=== PATIENT | female | born 2000 | race Caucasian/White ===

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

== ENCOUNTER 2019-03-05 11:57 | Emergency (ER) | payer BC, OTHER ==
--- OUTSIDE RECORDS SUMMARY | 2019-03-05 12:30 | XMS REPORT ---
:2000 Author Organization [facility] Address [address] [place] [address] Dr. Varghese [address] [place] [id number] Care Team Providers Name Role Phone Unavailable Unavailable Unavailable Problems This patient has no known problems. Allergies, Adverse Reactions, Alerts This patient has no known allergies or adverse reactions. Medications This patient has no known medications.
[2019-03-05] MEDS ORDERED: LEVALBUTEROL 1.25 MG/3 ML NEB ONE (12:39)
[2019-03-05 12:58] LABS: Urine Blood NEGATIVE (NEG); Urine Glucose NEGATIVE (NEG); Urine Protein NEGATIVE (NEG); Urine Specific Gravity 1.025 (1.005-1.030)
[2019-03-05 13:36] LABS: Absolute Lymphocytes (CBC) 1.9 K/uL (0.7-4.9); Absolute Monocytes 0.4 K/uL (0.1-1.3); Absolute Neutrophil 3.5 K/uL (1.8-8.0); Basophils % 0.3 % (0-1.3); Eosinophils % 3.7 % (0-4.4); Hematocrit 43.9 % (36.0-45.0); Lymphocytes % 31.3 % (15.3-44.8); MPV 9.1 fL (7.6-11.3); Monocytes % 7.3 % (3.3-12.3); RBC Red Blood Cell Count 5.28 M/uL (3.86-4.86)
--- NOTE | 2019-03-05 13:37 | RAD REPORT ---
EXAM DESCRIPTION: Yuan Single View03/05/2019 1:31 pm CLINICAL HISTORY: Chest pain COMPARISON: none FINDINGS: The lungs appear clear of acute infiltrate. The heart is normal size IMPRESSION: No acute abnormalities displayed
[2019-03-05 13:53] LABS: ALT/SGPT 58 U/L (12-78); AST/SGOT 37 U/L (15-37); Albumin 3.4 g/dL (3.4-5.0); Alkaline Phosphatase 82 U/L (45-117); BUN Blood Urea Nitrogen 9 mg/dL (7-18); Bicarbonate 24 mmol/L (21-32); Bilirubin Direct < 0.1 mg/dL (0-0.2); Bilirubin Total 0.3 mg/dL (0.2-1.0); Glucose Level 115 mg/dL (74-106); Magnesium 1.9 mg/dL (1.8-2.4); NT PRO-BNP 61 pg/mL (<125); Potassium 3.6 mmol/L (3.5-5.1); Protein, Total 7.3 g/dL (6.4-8.2); Sodium Level 145 mmol/L (136-145); Troponin (Emerg Dept Use Only) < 0.02 ng/mL (0.0-0.045)
[2019-03-05] MEDS ORDERED: DIPHENHYDRAMINE 50 MG/ML VIAL ONE (13:53)
[2019-03-05] MEDS ORDERED: METOCLOPRAMIDE 10 MG/2mL INJ ONE (13:53)
[2019-03-05] MEDS ORDERED: KETOROLAC 30 MG/ML INJ ONE (13:53)
[2019-03-05] MEDS ORDERED: DEXAMETHASONE 10 MG/ML VIAL ONE (13:53)
[2019-03-05] MEDS ORDERED: NA CHLORIDE 0.9% 1,000 ML ONE (13:53)
--- NOTE | 2019-03-05 14:14 | RAD REPORT ---
EXAM DESCRIPTION: CT - Chest For Pe Angio - 03/05/2019 2:04 pm CLINICAL HISTORY: Chest pain COMPARISON: None. TECHNIQUE: Dynamically enhanced axial 3 mm thick images of the chest were obtained during administra tion of <100> mL Isovue 370 IV contrast. Coronal and oblique reconstruction images were generated and reviewed. Exam utilizes a protocol for optimal evaluation of pulmonary arterial tree. Maximum intensity projections 3D imaging was utilized All CT scans are performed using dose optimization technique as appropriate and may include automated exposure control or mA/KV adjustment according to patient size. FINDINGS: The opacification of the pulmonary arteries is suboptimal. A gross central pulmonary embol us is not seen. A thoracic aortic aneurysm is not noted. A pleural effusion is not seen. A pericardial effusion is not seen. A lung consolidation is not present. IMPRESSION: No gross evidence of a pulmonary embolus
--- NOTE | 2019-03-05 15:15 | ER ---
Nurse's Notes [facility] Name: Yvonne Mojica Age: 18 yrs Sex: Female : 2000 Arrival Date: 03/05/2019 Time: 11:59 Bed 20 Private MD: Diagnosis: Cough;Wheezing Presentation: 03/05 12:03 Presenting complaint: Patient states: Sore throat, cough, congestion for 4 days. Denies aj fever. Patient would also like a test. Transition of care: patient was not received from another setting of care. Onset of symptoms was March 01, 2019. Risk Assessment: Do you want to hurt yourself or someone else? Patient reports no desire to harm self or others. Initial Sepsis Screen: Does the patient meet any 2 criteria? No. Patient's initial sepsis screen is negative. Does the patient have a suspected source of infection? No. Patient's initial sepsis screen is negative. Care prior to arrival: None. 12:03 Method Of Arrival: Ambulatory 12:03 Acuity: KEIRY 4 Triage Assessment: 12:04 General: Appears in no apparent distress. comfortable, Behavior is calm, cooperative, aj appropriate for age. Pain: Denies pain. EENT: Reports nasal congestion nasal discharge pain when swallowing. Respiratory: Reports cough that is. Derm: Skin is intact, is healthy with good turgor, Skin is pink, warm \T\ dry. normal. HUB BANDER: 12:04 [facility] 02/01/2019 aj Historical: - Allergies: 12:04 No Known Allergies; aj - Home Meds: 12:04 None [Active]; aj - PMHx: 12:04 None; aj - PSHx: 12:04 None; aj - Immunization history:: Adult Immunizations up to date. - Social history:: Smoking status: Patient uses tobacco products, denies chronic smoking, but will smoke occasionally. - Ebola Screening: : Patient negative for fever greater than or equal to 101.5 degrees Fahrenheit, and additional compatible Ebola Virus Disease symptoms Patient denies exposure to infectious person Patient denies travel to an Ebola-affected area in the 21 days before illness onset No symptoms or risks identified at this time. Screenin:05 Abuse screen: Denies threats or abuse. Denies injuries from another. Nutritional bp screening: No deficits noted. Tuberculosis screening: No symptoms or risk factors identified. Fall Risk None identified. Assessment: 12:00 General: SEE TRIAGE NOTE. Respiratory: Reports cough that is Airway is patent bp Respiratory effort is even, unlabored, Respiratory pattern is regular, symmetrical, Breath sounds are clear bilaterally. 14:00 Reassessment: ALL CURRENT ORDERS COMPLETED, RESULTS PENDING. bp 15:39 Reassessment: PT D/C HOME AMBULATORY, DX WITH COUGH AND WHEEZING. bp Vital Signs: 12:04 BP 131 / 76; Pulse 118; Resp 19; Temp 98.9; Pulse Ox 97% on R/A; Weight 122.47 kg; aj Height 5 ft. 2 in. (157.48 cm); 13:06 BP 137 / 72; Pulse 130; Resp 20; Temp 98.9; Pulse Ox 97% on R/A; mh5 13:48 BP 146 / 89; Pulse 118; Resp 20; Temp 100.0; Pulse Ox 100% ; bp 14:46 BP 124 / 58; Pulse 100; Resp 20; Temp 98.9(O); Pulse Ox 93% on R/A; mh5 12:04 Body Mass Index 49.38 (122.47 kg, 157.48 cm) aj ED Course: 11:59 Patient arrived in ED. ds1 12:04 Triage completed. aj 12:04 Arm band placed on left wrist. Patient placed in an exam room. aj 12:05 Patient has correct armband on for positive identification. Bed in low position. Call bp light in reach. Side rails up X2. Adult w/ patient. 12:06 Jason Salas PA is PHCP. cp 12:06 Jason Winn MD is Attending Physician. cp 12:07 Mega Matthews, VALDO is Primary Nurse. bp 13:29 Initial lab(s) drawn, by ny, sent to lab. Inserted saline lock: 20 gauge in right mh5 antecubital area, using aseptic technique. Blood collected. 13:30 Warm blanket given. Pulse ox on. NIBP on. mh5 13:31 X-ray completed. Portable x-ray completed in exam room. Patient tolerated procedure sw well. 13:33 XRAY Chest (1 view) In Process Unspecified. EDMS 14:01 CT completed. Patient tolerated procedure well. Patient moved to CT via wheelchair. sj Patient moved back from CT. 14:05 CT Chest For PE Angio In Process Unspecified. EDMS 15:41 No provider procedures requiring assistance completed. IV discontinued, intact, bp bleeding controlled, No redness/swelling at site. Administered Medications: 12:30 Drug: Xopenex (3) 1.25 mg Route: Inhalation; bp 13:30 Drug: TORadol 30 mg Route: IVP; Site: right antecubital; bp 15:49 Follow up: Response: Pain is decreased bp 13:30 Drug: Decadron - Dexamethasone 10 mg Route: IVP; Site: right antecubital; bp 15:48 Follow up: Response: No adverse reaction bp 13:30 Drug: NS 0.9% 1000 ml Route: IV; Rate: 1 bolus; Site: right antecubital; bp 15:43 Follow up: IV Status: Completed infusion; IV Intake: 1000ml bp 15:49 Follow up: IV Status: Completed infusion; IV Intake: 1000ml bp 13:30 Drug: Benadryl 25 mg Route: IVP; Site: right antecubital; bp 15:48 Follow up: Response: No adverse reaction bp 13:30 Drug: Reglan 10 mg Route: IVP; Site: right antecubital; bp 15:48 Follow up: Response: No adverse reaction bp Intake: 15:43 IV: 1000ml; Total: 1000ml. bp 15:49 IV: 1000ml; Total: 2000ml. bp Outcome: 15:15 Discharge ordered by MD. cp 15:41 Discharged to home ambulatory. bp 15:41 Condition: stable 15:41 Discharge instructions given to patient, Instructed on discharge instructions, follow up and referral plans. medication usage, Demonstrated understanding of instructions, follow-up care, medications, Prescriptions given X 3. 15:50 Patient left the ED. bp Signatures: Dispatcher [employer] EDMS Arcelia Coleman RN RN aj Jones, Leah Aragon, Joya ds1 Barb Menchaca Corey, PA PA cp Martinez, Maria [facility] Mega Matthews RN RN bp Corrections: (The following items were deleted from the chart) 12:06 12:03 Presenting complaint: Patient states: Sore throat, cough, congestion for 4 days. aj Denies fever aj
--- NOTE | 2019-03-05 15:16 | EDPHYS ---
Physician Documentation [facility] Name: Yvonne Mojica Age: 18 yrs Sex: Female : 2000 Arrival Date: 03/05/2019 Time: 11:59 Bed 20 Private MD: ED Physician Jason Winn HPI: 03/05 12:30 This 18 yrs old Female presents to ER via Ambulatory with complaints of Sore cp Throat, Cough. 12:30 The patient presents with sore throat. cp 12:30 Onset: The symptoms/episode began/occurred 4 day(s) ago. Severity of symptoms: in the emergency department the symptoms are unchanged, despite home interventions. Associated signs and symptoms: Pertinent positives: chest pain, cough, Pertinent negatives diarrhea, dysphagia, earache, fever, vomiting. The patient has not experienced similar symptoms in the past. 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 - Social history:: Smoking status: Patient uses tobacco products, denies chronic smoking, but will smoke occasionally. - Ebola Screening: : Patient negative for fever greater than or equal to 101.5 degrees Fahrenheit, and additional compatible Ebola Virus Disease symptoms Patient denies exposure to infectious person Patient denies travel to an Ebola-affected area in the 21 days before illness onset No symptoms or risks identified at this time. ROS: 12:35 Constitutional: Negative for body aches, chills, fever, poor PO intake. cp 12:35 Eyes: Negative for injury, pain, redness, and discharge. cp 12:35 ENT: Positive for sore throat, Negative for drainage from ear(s), ear pain, difficulty swallowing, difficulty handling secretions. 12:35 Cardiovascular: Positive for chest pain, Negative for edema, palpitations. 12:35 Respiratory: Positive for cough, shortness of breath, Negative for wheezing. 12:35 Abdomen/GI: Negative for abdominal pain, nausea, vomiting, and diarrhea, black/tarry stool, rectal bleeding. 12:35 Back: Negative for pain at rest, pain with movement, radiated pain. 12:35 Skin: Negative for cellulitis, rash. 12:35 Neuro: Positive for dizziness, headache, Negative for altered mental status, syncope, weakness. 12:35 All other systems are negative. Exam: 12:42 Constitutional: The patient appears in no acute distress, alert, awake, cp non-diaphoretic, non-toxic, well developed, well nourished, uncomfortable. 12:42 Head/Face: Normocephalic, atraumatic. cp 12:42 Eyes: Periorbital structures: appear normal, Conjunctiva: normal, no exudate, no injection, Sclera: no appreciated abnormality, Lids and lashes: appear normal, bilaterally. 12:42 ENT: External ear(s): are unremarkable, Ear canal(s): are normal, clear, TM's: bulging, is not appreciated, bilaterally, dullness, bilaterally, erythema, is not appreciated, bilaterally, Nose: is normal, Mouth: Lips: moist, Oral mucosa: moist, Posterior pharynx: Airway: no evidence of obstruction, patent, Tonsils: no enlargement, no exudate, Uvula: midline, swelling, is not appreciated, erythema, that is mild. 12:42 Neck: ROM/movement: is normal, is supple, without pain, no range of motions limitations, no meningismus, no nuchal rigidity. 12:42 Chest/axilla: Inspection: normal, Palpation: is normal, no crepitus, no tenderness. 12:42 Cardiovascular: Rate: tachycardic, Rhythm: regular, Heart sounds: murmur, not appreciated, Edema: is not appreciated, JVD: is not appreciated. 12:42 Respiratory: the patient does not display signs of respiratory distress, Respirations: normal, no use of accessory muscles, no retractions, no splinting, no tachypnea, labored breathing, is not present, Breath sounds: bronchial sounds, that are mild, are heard diffusely, decreased breath sounds, are not appreciated, stridor, is not appreciated, wheezing: that is mild, is heard diffusely. 12:42 Abdomen/GI: Inspection: abdomen appears normal, Palpation: soft, in all quadrants. 12:42 Back: ROM is normal. 12:42 Skin: cellulitis, is not appreciated, no rash present. 12:42 Neuro: Orientation: to person, place \T\ time. Mentation: is normal, Cerebellar function: is grossly normal, Motor: is normal, Sensation: is normal. 13:48 ECG was reviewed by the Attending Physician. cp Vital Signs: 12:04 BP 131 / 76; Pulse 118; Resp 19; Temp 98.9; Pulse Ox 97% on R/A; Weight 122.47 kg; aj Height 5 ft. 2 in. (157.48 cm); 13:06 BP 137 / 72; Pulse 130; Resp 20; Temp 98.9; Pulse Ox 97% on R/A; mh5 13:48 BP 146 / 89; Pulse 118; Resp 20; Temp 100.0; Pulse Ox 100% ; bp 14:46 BP 124 / 58; Pulse 100; Resp 20; Temp 98.9(O); Pulse Ox 93% on R/A; mh5 12:04 Body Mass Index 49.38 (122.47 kg, 157.48 cm) aj MDM: 12:06 Patient medically screened. cp 15:15 Data reviewed: vital signs, nurses notes, lab test result(s), EKG, radiologic studies, cp CT scan, plain films. 15:15 Differential diagnosis: retropharyngeal abcess tonsillitis, tracheobronchitis, cp pneumonia, PE. Test interpretation: by ED physician or midlevel provider: ECG, plain radiologic studies. Counseling: I had a detailed discussion with the patient and/or guardian regarding: the historical points, exam findings, and any diagnostic results supporting the discharge/admit diagnosis, lab results, radiology results, the need for outpatient follow up, to return to the emergency department if symptoms worsen or persist or if there are any questions or concerns that arise at home. Response to treatment: the patient's symptoms have markedly improved after treatment, and as a result, I will discharge patient. 03/05 12:21 Order name: Influenza Screen (a \T\ B); Complete Time: 13:46 cp 03/05 12:21 Order name: Strep; Complete Time: 13:46 cp 03/05 12:42 Order name: Urine Dipstick--Ancillary (enter results); Complete Time: 13:46 hb 03/05 12:42 Order name: Urine --Ancillary (enter results); Complete Time: 13:46 hb 03/05 13:01 Order name: Basic Metabolic Panel; Complete Time: 14:19 cp 06/06 15:03 Interpretation: Normal except: CL 110; GLUC 115; CA 8.2. cp 06/06 13:01 Order name: CBC with Diff; Complete Time: 13:46 cp 06/06 15:04 Interpretation: Normal except: RBC 5.28. cp 06/06 13:01 Order name: LFT's; Complete Time: 14:19 cp 06/06 15:04 Interpretation: Normal except: GLOB 3.9; A/G 0.9. cp 06/06 13:01 Order name: Magnesium; Complete Time: 14:19 cp 06/06 13:01 Order name: NT PRO-BNP; Complete Time: 14:19 cp / 13:01 Order name: Troponin (emerg Dept Use Only); Complete Time: 14:19 cp / 13:01 Order name: XRAY Chest (1 view); Complete Time: 13:46 cp / 13:01 Order name: D-Dimer; Complete Time: 13:46 cp / 13:03 Order name: Throat Culture EDMS 03/05 13:47 Order name: CT Chest For PE Angio; Complete Time: 14:19 cp 06/06 14:20 Interpretation: Report reviewed. cp 03/05 12:21 Order name: Urine Dipstick-Ancillary (obtain specimen); Complete Time: 12:36 cp /06 12:21 Order name: Urine Test (obtain specimen); Complete Time: 12:36 cp 06/06 13:01 Order name: EKG; Complete Time: 13:03 cp /06 13:01 Order name: Cardiac monitoring; Complete Time: 13:35 cp 06/06 13:01 Order name: EKG - Nurse/Tech; Complete Time: 13:35 cp 06/06 13:01 Order name: IV Saline Lock; Complete Time: 13:35 cp 06/06 13:01 Order name: Labs collected and sent; Complete Time: 13:34 cp /06 13:01 Order name: O2 Per Protocol; Complete Time: 13:34 cp /06 13:01 Order name: O2 Sat Monitoring; Complete Time: 13:34 cp EC:48 Rate is 113 beats/min. Rhythm is regular. ID interval is normal. QRS interval is cp normal. QT interval is normal. Interpreted by me. Reviewed by me. Administered Medications: 12:30 Drug: Xopenex (3) 1.25 mg Route: Inhalation; bp 13:30 Drug: TORadol 30 mg Route: IVP; Site: right antecubital; bp 15:49 Follow up: Response: Pain is decreased bp 13:30 Drug: Decadron - Dexamethasone 10 mg Route: IVP; Site: right antecubital; bp 15:48 Follow up: Response: No adverse reaction bp 13:30 Drug: NS 0.9% 1000 ml Route: IV; Rate: 1 bolus; Site: right antecubital; bp 15:43 Follow up: IV Status: Completed infusion; IV Intake: 1000ml bp 15:49 Follow up: IV Status: Completed infusion; IV Intake: 1000ml bp 13:30 Drug: Benadryl 25 mg Route: IVP; Site: right antecubital; bp 15:48 Follow up: Response: No adverse reaction bp 13:30 Drug: Reglan 10 mg Route: IVP; Site: right antecubital; bp 15:48 Follow up: Response: No adverse reaction bp Disposition: 03/06 07:23 Co-signature as Attending Physician, Jason Winn MD I agree with the assessment and [facility] plan of care. Disposition: 03/05/19 15:15 Discharged to Home. Impression: Cough, Wheezing. - Condition is Stable. - Discharge Instructions: Cool Mist Vaporizer, Cough, Adult. - Prescriptions for prednisone 50 mg Oral tablet - take 1 tablet by ORAL route once daily for 5 days; 5 tablet. Tessalon Perles 100 mg Oral Capsule - take 2 capsule by ORAL route every 8 hours As needed; 20 capsule. Albuterol Sulfate 90 mcg/actuation - inhale 1-2 puff by INHALATION route every 4-6 hours; 1 Inhaler. - Medication Reconciliation Form, Thank You Letter, Antibiotic Education, Prescription Opioid Use form. - Follow up: Private Physician; When: 2 - 3 days; Reason: Recheck today's complaints. - Problem is new. - Symptoms have improved. Signatures: Dispatcher [employer] Arcelia Newman, Jason Bhatti RN, MD MD cha Page, Corey, PA PA Mega Rahman RN RN bp Corrections: (The following items were deleted from the chart) 03/05 15:03 14:19 Normal except: CL 110; GLUC 115. cp cp 15:50 15:15 03/05/2019 15:15 Discharged to Home. Impression: Cough; Wheezing. Condition is bp Stable. Forms are Medication Reconciliation Form, Thank You Letter, Antibiotic Education, Prescription Opioid Use. Follow up: Private Physician; When: 2 - 3 days; Reason: Recheck today's complaints. Problem is new. Symptoms have improved. cp
--- NOTE | 2019-03-06 07:19 | EKG ---
Test Date: 2019-03-05 Test Time: 13:41:02 Chocolate Maker: LILIA MEASUREMENT RESULTS: Intervals: Rate: 113 ME: 130 QRSD: 84 QT: 326 QTc: 447 Morganza: P: 52 ME: 130 QRS: 38 T: 1 INTERPRETIVE STATEMENTS: Sinus tachycardia Nonspecific T wave abnormality Abnormal ECG No previous ECG available for comparison Electronically Signed On 03-06-19 07:16:07 CDT by Jules Phelan
== END 2019-03-05 15:50 | disposition home or self-care (01) ==
LOC: ER 11:57
DX: R05 Cough (principal); R06.2 Wheezing; J02.9 Acute pharyngitis, unspecified; Z72.0 Tobacco use
CPT/HCPCS: 36415; 71045; 71275; 80048; 80076; 81003; 81025; 83735; 83880; 84484; 85025; 85379; 87070; 87081; 87804; 93005; 96361; 96374; 96375; 99285; J1100; J2765; J7030; Q9967

== ENCOUNTER 2020-12-30 13:23 | Emergency (ER) | payer BC ==
--- OUTSIDE RECORDS SUMMARY | 2020-12-30 13:26 | XMS REPORT | Continuity of Care Document ---
:2000 Author Organization [facility] Address [address] [place] [address] [address]. [address] [place] [address] Care Team Providers Name Role Phone Zayra Alexander Attending Clinician Vanda Carey Attending Clinician Problems This patient has no known problems. Allergies, Adverse Reactions, Alerts This patient has no known allergies or adverse reactions. Medications This patient has no known medications. Procedures This patient has no known procedures. 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
--- NOTE | 2020-12-30 15:10 | ER ---
Nurse's Notes [facility] Name: Yvonne Mojica Age: 20 yrs Sex: Female : 2000 Arrival Date: 12/30/2020 Time: 13:25 Bed Waiting Private MD: Diagnosis: Presentation: 12/30 13:41 Chief complaint: Patient states: Epigastric pain today. N/V x 2 days. Denies diarrhea. ca1 Coronavirus screen: Client denies travel out of the [place] in the last 14 days. At this time, the client does not indicate any symptoms associated with coronavirus-19. Ebola Screen: Patient negative for fever greater than or equal to 101.5 degrees Fahrenheit, and additional compatible Ebola Virus Disease symptoms Patient denies exposure to infectious person. Patient denies travel to an Ebola-affected area in the 21 days before illness onset. No symptoms or risks identified at this time. Initial Sepsis Screen: Does the patient meet any 2 criteria? No. Patient's initial sepsis screen is negative. Does the patient have a suspected source of infection? No. Patient's initial sepsis screen is negative. Risk Assessment: Do you want to hurt yourself or someone else? Patient reports no desire to harm self or others. Onset of symptoms was December 30, 2020. 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 - Social history:: Smoking status: Patient reports the use of cigarette tobacco products, smokes one-half pack cigarettes per day. Assessment: 14:50 Reassessment: pt not in lobby. iw Vital Signs: 13:41 BP 110 / 93; Pulse 100; Resp 16 S; Temp 98.9(TE); Pulse Ox 97% on R/A; Weight 90.72 kg ca1 (R); Height 5 ft. 6 in. (167.64 cm) (R); Pain 8/10; 13:41 Body Mass Index 32.28 (90.72 kg, 167.64 cm) ca1 ED Course: 13:25 Patient arrived in ED. as 13:48 Triage completed. ca1 13:48 Arm band placed on right wrist. ca1 14:49 Bhargav Rowley MD is Attending Physician. ma2 15:09 Yessenia Slade, RN is Primary Nurse. iw Administered Medications: No medications were administered Outcome: 15:09 Patient left the ED. iw Signatures: María Monge as Yessenia Slade, RN RN iw Bhargav Rowley MD MD ny2 Nuria Oneill RN RN ca1
[2020-12-31 03:43] VITALS: BP 110/93; TEMP 98.9; O2SAT 97
== END 2020-12-30 15:09 | disposition left against medical advice (07) ==
LOC: ER 13:23
DX: Z53.21 Procedure and treatment not carried out due to patient leaving prior to being seen by health care provider (principal)
CPT/HCPCS: 99281

== ENCOUNTER 2021-01-20 16:10 | Emergency (ER) | payer BC ==
--- OUTSIDE RECORDS SUMMARY | 2021-01-20 16:12 | XMS REPORT | Continuity of Care Document ---
:2000 Author Organization [facility] Address [address] [place] [address] Dr. [address]. 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
--- NOTE | 2021-01-20 19:29 | ER ---
Nurse's Notes [facility] Name: Yvonne Mojica Age: 20 yrs Sex: Female : 2000 Arrival Date: 01/20/2021 Time: 16:12 Bed Waiting Private MD: Diagnosis: Presentation: 01/20 16:19 Chief complaint: Sudden onset anxiety, N/V, and SOB while at work . Pt reports vomiting hb x 3. Drinking water in triage. Coronavirus screen: At this time, the client does not indicate any symptoms associated with coronavirus-19. Ebola Screen: No symptoms or risks identified at this time. Initial Sepsis Screen: Does the patient meet any 2 criteria? No. Patient's initial sepsis screen is negative. Does the patient have a suspected source of infection? No. Patient's initial sepsis screen is negative. Risk Assessment: Do you want to hurt yourself or someone else? Patient reports no desire to harm self or others. Onset of symptoms was January 20, 2021. 16:19 Method Of Arrival: Wheelchair hb 16:19 Acuity: KEIRY 3 hb Historical: - Allergies: 16:22 No Known Allergies; hb - Immunization history:: Adult Immunizations up to date. - Social history:: Smoking status: Patient reports the use of cigarette tobacco products, smokes one-half pack cigarettes per day. Vital Signs: 16:19 BP 134 / 69; Pulse 61; Resp 16; Temp 97.4; Pulse Ox 100% on R/A; Pain 0/10; hb ED Course: 16:12 Patient arrived in ED. mr 16:21 Triage completed. hb 16:22 Arm band placed on. 18:04 Garrison Wooten PA is PHCP. [facility] 18:04 Jason Winn MD is Attending Physician. [facility] 19:17 Danielle Fraser, RN is Primary Nurse. vg1 Administered Medications: No medications were administered Outcome: 19:28 Patient left the ED. iw Signatures: Garrison Wooten PA PA jm BolanosTracey mr Yessenia Slade, RN RN Radhika Brooks RN RN Danielle Fraser RN RN vg1
[2021-01-20 19:40] VITALS: BP 134/69; TEMP 97.4; O2SAT 100
== END 2021-01-20 19:28 | disposition left against medical advice (07) ==
LOC: ER 16:10
DX: F41.9 Anxiety disorder, unspecified (principal); R11.2 Nausea with vomiting, unspecified; R06.02 Shortness of breath; Z53.21 Procedure and treatment not carried out due to patient leaving prior to being seen by health care provider; F17.210 Nicotine dependence, cigarettes, uncomplicated
CPT/HCPCS: 99281